=== PATIENT | female | born 2000 | race Caucasian/White ===

== ENCOUNTER 2024-05-08 15:21 | Emergency (ER) | payer OTHER ==
[~2024-05-08] VITALS: Ht 162.6 cm; Wt 125.5 kg
[~2024-05-08 15:21] MED LIST: NO HOME MEDICATIONS; ZITHROMAX100 MG/5 M PO
[2024-05-08 15:48] VITALS: TEMP 97.9
[2024-05-08] MEDS ORDERED: AMOXICILLIN875 MG PO (16:53)
[2024-05-08 17:03] VITALS: BP 128/72; PULSE 68
== END 2024-05-08 17:03 | disposition home or self-care (01) ==
LOC: COL.ER 15:21
DX: J02.9 Acute pharyngitis, unspecified (principal)